=== PATIENT | male | born 1970 | race Caucasian/White ===

== ENCOUNTER 2016-08-14 15:37 | Emergency (ER) | payer OTHER ==
[2016-08-14 15:41] VITALS: BP 136/94; PULSE 86; TEMP 97.9; BMI 30.7
[2016-08-14] MEDS ORDERED: IBUPROFEN 400 MG TABLET (FP) PO ONE ×2 (16:19→16:20)
--- NOTE | 2016-08-14 16:24 | PDOC ---
History of Present Illness - General Chief Complaint: Injury Stated Complaint: YPD, BACK PAIN Time Seen by Provider: 08/14/16 16:03 History Source: Patient - History of Present Illness Occurred: reports: this afternoon Pain Location: reports: back, upper extremity Method of Injury: Yes: fall Past History - Past Medical History Allergies/Adverse Reactions: Allergies Allergy/AdvReac Type Severity Reaction Status Date / Time No Known Allergies Allergy Verified 03/28/15 15:11 Hypercholesterolemia: Yes - Immunization History Immunization Up to Date: Yes - Psycho/Social/Smoking Cessation Hx Anxiety: No Suicidal Ideation: No Smoking Status: No Smoking History: Never smoked Have you smoked in the past 12 months: No Number of Cigarettes Smoked Daily: 0 Cigars Per Day: 0 Information on smoking cessation initiated: No Hx Alcohol Use: No Drug/Substance Use Hx: No Substance Use Type: None Review of Systems - Review of Systems Musculoskeletal: Yes: Back Pain, Joint Pain. No: Joint Swelling, Neck Pain Neurological: No: Headache, Dizziness *Physical Exam - Vital Signs Last Vital Signs Temp Pulse Resp BP Pulse Ox 97.9 F 86 2 L 136/94 97 08/14/16 15:38 08/14/16 15:38 08/14/16 15:38 08/14/16 15:38 08/14/16 15:38 - Physical Exam General Appearance: Yes: Appropriately Dressed. No: Apparent Distress HEENT: positive: Normal Voice Neck: positive: Supple. negative: Tender, Decreased range of motion Respiratory/Chest: negative: Respiratory Distress Musculoskeletal: positive: Normal Inspection, Vertebral Tenderness Extremity: positive: Normal Inspection, Normal Range of Motion, Tender. negative: Swelling Integumentary: positive: Dry, Warm Neurologic: positive: Fully Oriented, Alert, Normal Mood/Affect ED Treatment Course - RADIOLOGY Radiology Studies Ordered: Category Date Time Status ELBOW-LEFT [RAD] Stat Radiology 08/14/16 16:20 Ordered SPINE-LUMBAR SACRAL [RAD] Stat Radiology 08/14/16 16:19 Ordered Medical Decision Making - Medical Decision Making 08/14/16 16:20 45-year-old male, no significant history, here with lower back and elbow pain s/ p fall at work this afternoon. Pt works for [employer] and slipped down 6 steps today, C/o L lower back pain and L elbow pain since. No neck pain and denies hitting head or LOC. Ambulating in ED. Pt well ester and stable w/ ttp to L lower back and over posterior L elbow. M/l MSK, doubt fx. Will get XR and control pain in ED 08/14/16 16:23 08/14/16 16:46 XRs negative for fx. Pt stable for discharge. *DC/Admit/Observation/Transfer Diagnosis at time of Disposition: Sprain - Discharge Dispostion Disposition: HOME Condition at time of disposition: Good - Patient Instructions Printed Discharge Instructions: DI for Back Strain or Sprain Additional Instructions: Take motrin or tylenol as needed for pain - Post Discharge Activity Work/School Note: Back to Work
== END 2016-08-14 17:24 | disposition home or self-care (01) ==
LOC: JERFT 15:37
DX: S53.492A Other sprain of left elbow, initial encounter (principal); S39.012A Strain of muscle, fascia and tendon of lower back, initial encounter; W10.8XXA Fall (on) (from) other stairs and steps, initial encounter; Y93.89 Activity, other specified; Y92.89 Other specified places as the place of occurrence of the external cause; Y99.0 Civilian activity done for income or pay
CPT/HCPCS: 72100-TC; 73070-TC-LT; 99281-25

== ENCOUNTER 2018-05-08 10:39 | Emergency (ER) | payer OTHER ==
[2018-05-08 10:49] VITALS: BP 134/84; PULSE 90; TEMP 98.6; BMI 30.7
[2018-05-08] MEDS ORDERED: IBUPROFEN 600 MG TABLET (FP) PO ONE ×2 (11:05→11:06)
--- NOTE | 2018-05-08 11:08 | PDOC ---
History of Present Illness - General Chief Complaint: Injury Stated Complaint: INJURY Time Seen by Provider: 05/08/18 11:05 History Source: Patient Exam Limitations: No Limitations - History of Present Illness Initial Comments: 05/08/18 11:05 Sharon FRIEDMAN injured right knee and right 5th digit during restraint of an EDP. pt is right hand dominant. Past History - Past Medical History Allergies/Adverse Reactions: Allergies Allergy/AdvReac Type Severity Reaction Status Date / Time No Known Allergies Allergy Verified 03/28/15 15:11 Home Medications: Ambulatory Orders NK [No Known Home Medication] 05/08/18 COPD: No Hypercholesterolemia: Yes - Immunization History Immunization Up to Date: Yes - Suicide/Smoking/Psychosocial Hx Smoking Status: No Smoking History: Never smoked Have you smoked in the past 12 months: No Number of Cigarettes Smoked Daily: 0 Cigars Per Day: 0 Hx Alcohol Use: No Drug/Substance Use Hx: No Substance Use Type: None *Physical Exam - Vital Signs Last Vital Signs Temp Pulse Resp BP Pulse Ox 98.6 F 90 18 134/84 100 05/08/18 10:41 05/08/18 10:41 05/08/18 10:41 05/08/18 10:41 05/08/18 10:41 - Physical Exam General Appearance: Yes: Nourished, Appropriately Dressed HEENT: positive: EOMI, PRAVIN Extremity: positive: Normal Capillary Refill, Normal Inspection, Normal Range of Motion, Other (FROM right knee skin intact, FROM right 5th digit no bony tenderness, skin intact, no deformity ). negative: Tender Integumentary: positive: Normal Color, Dry, Warm. negative: Rash, Swelling, Ecchymosis, Bruising Neurologic: positive: swatch paster II-XII NML intact, Fully Oriented, Alert, Normal Mood/ Affect, Normal Response, Motor Strength 5/5 Medical Decision Making - Medical Decision Making 05/08/18 11:19 cc: right knee, right pinky injury today at work , no deformity no bony tenderness , no deformity , will give motrin now, pt refused xray pt will follow with orthopedist as needed *DC/Admit/Observation/Transfer Diagnosis at time of Disposition: Sprain of finger, right Qualifiers: Encounter type: initial encounter Finger: little finger Sprain of finger site: other site Qualified Code(s): S63.696A - Other sprain of right little finger, initial encounter Knee contusion Qualifiers: Encounter type: initial encounter Laterality: right Qualified Code(s): S80.01XA - Contusion of right knee, initial encounter - Discharge Dispostion Disposition: HOME Condition at time of disposition: Good - Referrals Referrals: Bert Novoa MD [Primary Care Provider] - - Patient Instructions Additional Instructions: take ibuprofen as needed for pain follow with your doctor or an orthopedist if any worsening pain you can apply ice as needed every 2hrs for 15 minutes - Post Discharge Activity
== END 2018-05-08 11:28 | disposition home or self-care (01) ==
LOC: JER 10:39
DX: S80.01XA Contusion of right knee, initial encounter (principal); S63.696A Other sprain of right little finger, initial encounter; Y35.891A Legal intervention involving other specified means, law enforcement official injured, initial encounter; X58.XXXA Exposure to other specified factors, initial encounter; Y93.89 Activity, other specified; Y92.9 Unspecified place or not applicable; E78.00 Pure hypercholesterolemia, unspecified
CPT/HCPCS: 99281-25

== ENCOUNTER 2020-10-08 18:36 | Emergency (ER) | payer OTHER ==
[2020-10-08 18:41] VITALS: BP 123/84; TEMP 99.2; BMI 32.1
[2020-10-08] MEDS ORDERED: IBUPROFEN 400 MG TABLET (FP) PO ONE ×2 (19:04→19:06)
[2020-10-08 19:05] VITALS: PULSE 98
== END 2020-10-08 19:14 | disposition home or self-care (01) ==
LOC: FER 18:36
DX: M25.561 Pain in right knee (principal); M54.6 Pain in thoracic spine
CPT/HCPCS: 99283-25

== ENCOUNTER 2021-03-17 11:39 | Emergency (ER) | payer OTHER ==
[2021-03-17 11:53] VITALS: BP 129/90; PULSE 99; TEMP 98.5; BMI 31.4
== END 2021-03-17 11:57 | disposition home or self-care (01) ==
LOC: FER 11:39
DX: Z77.21 Contact with and (suspected) exposure to potentially hazardous body fluids (principal)
CPT/HCPCS: 99281-25